=== PATIENT | male | born 1995 | race Caucasian/White ===

== ENCOUNTER 2024-08-25 22:19 | Emergency (ER) | payer SELFPAY ==
[~2024-08-25] VITALS: Ht 177.8 cm; Wt 100.0 kg
[2024-08-25 22:40] VITALS: O2SAT 100
[2024-08-26 05:20] LABS: BASOPHILS % 0.3 % (0.0-2.0); EOSINOPHILS % 2.8 % (0.0-5.0); HEMATOCRIT. 47.5 % (42.0-52.0); HEMOGLOBIN. 15.9 g/dL (14.0-18.0); LYMPHOCYTES % 23.9 % (20.0-50.0); MEAN CORPUSCULAR HEMOGLOBIN 29.4 pg (28.0-32.0); MEAN CORPUSCULAR HGB CONC 33.6 g/dL (31.0-37.0); MEAN CORPUSCULAR VOLUME 87.7 fL (80.0-94.0); MEAN PLATELET VOLUME 8.3 fl (7.4-10.4); MONOCYTES % 8.7 % (2.0-8.0); NEUTROPHILS % 64.3 % (40.0-76.0); PLATELET 274 x1000/uL (130-400); RED BLOOD CELL COUNT 5.41 mill/uL (4.7-6.1); RED CELL DISTRIBUTION WIDTH 14.1 % (11.6-14.6); WHITE BLOOD COUNT 11.2 x1000/uL (4.5-11.0)
[2024-08-26 05:32] LABS: CHLORIDE 103 mEq/L (98-107); POTASSIUM 4.2 mEq/L (3.5-5.1); SODIUM 139 mEq/L (136-145)
[2024-08-26 05:33] LABS: CARBON DIOXIDE 26 mEq/L (21-32)
[2024-08-26 05:34] LABS: CALCIUM 9.4 mg/dL (8.7-10.4)
[2024-08-26 05:38] LABS: GLUCOSE 94 mg/dL (70-105); UREA NITROGEN BLOOD 12 mg/dL (9-23)
[2024-08-26 05:41] LABS: TROPONIN I HIGH SENSITIVITY < 4 ng/L (3.0-53)
[2024-08-26] MEDS: KETOROLAC 30MG/ML VIAL IV STA (06:13)
[2024-08-26 07:06] LABS: TROPONIN I HIGH SENSITIVITY < 4 ng/L (3.0-53)
[2024-08-26] MEDS ORDERED: TOPUD PO (07:12)
[2024-08-26 07:28] VITALS: BP 129/78; PULSE 64; RESP 16; TEMP 36.9; O2SAT 100
== END 2024-08-26 07:29 | disposition home or self-care (01) ==
LOC: ER 22:19
DX: R07.89 Other chest pain (principal)
CPT/HCPCS: 99285; 71045; 36415 ×2; 93005; 96374; 80048; 85025; 84484; J1885